=== PATIENT | male | born 1960 | race Hispanic/Latino ===

== ENCOUNTER → 2018-04-29 | Day surgery (SDC) | payer MEDICARE ==
[~2018-04-29] MED LIST: FENTANYL CITRATE/PF 100MCG/2 ML INJ ONE; HYDRALAZINE HCL25 MG PO; HYOSCYAMINE SULFATE 0.5 MG/ML INJ ONE; METOPROLOL TART50 MG PO; MIDAZOLAM HCL 2 MG/2 ML VIAL ONE; PROPOFOL IV EMULSION 10 MG/ML 50 ML VIAL ONE
[2018-04-29 13:27] VITALS: BP 132/85
--- NOTE | 2018-04-29 14:18 | Operative Report ---
DATE OF PROCEDURE: April 29, 2018 REFERRING PHYSICIAN: Dr. Boy Tripp. PROCEDURE PERFORMED: Colonoscopy and polypectomy. INDICATIONS FOR COLONOSCOPY: Colorectal cancer screening. MEDICATION: Patient was done under MAC. Please see anesthesiologist's note. PROCEDURE: With the patient in left lateral decubitus position, a flexible fiberoptic Olympus colonoscope was inserted into the rectum with ease and advanced all the way to the cecum. Mucosa overlying the cecum appeared to be within normal limits. Diverticular disease was noted to involve the right colon. One polyp was snared from the proximal ascending colon and a larger polyp, approximately 1.5 cm in size, was snared from the distal ascending colon. Site was tattooed. The transverse and descending grossly appeared to be within normal limits. One polyp was hot biopsied from the sigmoid. The rectum appeared to be within normal limits. The scope was then retroflexed into the distal rectum and small internal hemorrhoids were noted, none of which was actively bleeding. The scope was then straightened out. It was subsequently withdrawn. Patient tolerated the procedure well. IMPRESSION 1. Diverticulosis, right colon. 2. Large polyp, approximately 1.5 cm in size, ascending colon, removed per snare electrocautery and polypectomy site was tattooed. 3. Ascending colon polyp, distal to the aforementioned, removed per snare electrocautery. 4. Sigmoid colon polyp, hot biopsied. 5. Internal hemorrhoids, none actively bleeding. PLAN: Follow up histology. Initiate high-fiber, low-fat diet. Initiate high-fiber supplement. Timing of followup colonoscopy pending pathology report. Job#: [id number] [facility] cc:BOY SCHULTE MD
== END | disposition home or self-care (01) ==
LOC: OR 10:03
PROVIDERS: ATTEND Internal Medicine Gastroenterology
DX: Z12.11 Encounter for screening for malignant neoplasm of colon (principal); D12.2 Benign neoplasm of ascending colon; D12.5 Benign neoplasm of sigmoid colon; K57.30 Diverticulosis of large intestine without perforation or abscess without bleeding; K64.8 Other hemorrhoids; I10 Essential (primary) hypertension
CPT/HCPCS: 45384; 45385; 88305; 93005; J1980; J2250; 45378

== ENCOUNTER → 2022-01-05 | Day surgery (SDC) | payer MEDICARE ==
[2022-01-01 13:51] LABS: BASOPHILS % 0.4 % (0.0-1.0); EOSINOPHILS # (AUTO) 0.1 (0.0-0.4); EOSINOPHILS % 1.1 % (0.0-6.0); HEMOGLOBIN 12.3 g/dL (14.0-18.0); LYMPHOCYTES # (AUTO) 0.6 (1.0-3.2); MEAN CORPUSCULAR HEMOGLOBIN 30.7 pg (28-32); MEAN CORPUSCULAR HGB CONC 34.2 g/dL (31-35); MEAN CORPUSCULAR VOLUME 89.8 fL (81-99); MONOCYTES # (AUTO) 0.6 (0.2-0.8); MONOCYTES % 11.2 % (4.4-11.3); NEUTROPHILS # (AUTO) 4.1 (2.1-6.9); NEUTROPHILS % 75.9 % (38.7-80.0); PLATELET COUNT 147 x10e3/uL (140-360); RED BLOOD COUNT 4.01 x10e6/uL (4.3-5.7); RED CELL DISTRIBUTION WIDTH 13.1 % (11.7-14.4)
[2022-01-01 14:11] LABS: ANION GAP 15.7 mmol/L (8-16); CALCIUM 8.7 mg/dL (8.4-10.2); CREATININE, SERUM 1.67 mg/dL (0.72-1.25); POTASSIUM 4.7 mmol/L (3.5-5.1)
[2022-01-01 14:38] LABS: INR 1.04; PROTHROMBIN TIME 14.5 seconds (11.9-14.5)
[2022-01-01 14:39] LABS: PARTIAL THROMBOPLASTIN TIME 31.5 seconds (23.8-35.5)
[~2022-01-05] MED LIST changes: +AMLODIPINE BESYL5 MG PO; +ASPIRIN81 MG PO; +BACTRIM DS TAB1 EACH PO; +CARVEDILOL12.5 MG PO; +CEFDINIR300 MG PO; +CRESTOR10 MG PO; +FAMOTIDINE20 MG PO; -FENTANYL CITRATE/PF 100MCG/2 ML INJ ONE; +HUMALOG MI100 UNIT/2 SQ; -HYOSCYAMINE SULFATE 0.5 MG/ML INJ ONE; +LEVOCETIRIZINE D5 MG PO; -MIDAZOLAM HCL 2 MG/2 ML VIAL ONE; +MYCOPHENOLATE250 MG PO; +OR PHACO EYE KIT ONE; +PREDNISONE5 MG PO; +PREOP PHACO EYE KIT ONE; -PROPOFOL IV EMULSION 10 MG/ML 50 ML VIAL ONE; +TACROLIMUS1 MG PO; +VITAMIN D PO
[2022-01-05 15:30] VITALS: BP 147/63
== END | disposition home or self-care (01) ==
LOC: OR 11:27
PROVIDERS: ATTEND Ophthalmology
DX: H25.12 Age-related nuclear cataract, left eye (principal); E11.9 Type 2 diabetes mellitus without complications; I10 Essential (primary) hypertension; N25.81 Secondary hyperparathyroidism of renal origin; H54.7 Unspecified visual loss; E78.1 Pure hyperglyceridemia; Z71.89 Other specified counseling; Z94.0 Kidney transplant status; Z01.810 Encounter for preprocedural cardiovascular examination; Z01.812 Encounter for preprocedural laboratory examination; Z20.822 Contact with and (suspected) exposure to COVID-19; Z79.4 Long term (current) use of insulin; Z79.82 Long term (current) use of aspirin; Z79.899 Other long term (current) drug therapy; Z68.30 Body mass index [BMI] 30.0-30.9, adult; Z87.891 Personal history of nicotine dependence
CPT/HCPCS: 0223U; 36415 ×2; 66984; 80048; 82948; 85025; 85610; 85730; V2632

== ENCOUNTER → 2022-01-19 | Day surgery (SDC) | payer MEDICARE ==
[~2022-01-19] MED LIST changes: +DEXTROSE 5% 250ML 250 ML IV ONE; +DEXTROSE 50% SYRINGE 50 ML IV ONE; +FENTANYL CITRATE/PF 100MCG/2 ML INJ ONE; +MIDAZOLAM HCL 2 MG/2 ML VIAL ONE
[2022-01-19 15:00] VITALS: BP 129/68
== END | disposition home or self-care (01) ==
LOC: OR 10:07
PROVIDERS: ATTEND Ophthalmology
DX: H25.11 Age-related nuclear cataract, right eye (principal); I10 Essential (primary) hypertension; E11.9 Type 2 diabetes mellitus without complications; Z01.812 Encounter for preprocedural laboratory examination; Z20.822 Contact with and (suspected) exposure to COVID-19; Z79.82 Long term (current) use of aspirin; Z79.4 Long term (current) use of insulin; Z79.899 Other long term (current) drug therapy; Z94.0 Kidney transplant status; Z87.891 Personal history of nicotine dependence
CPT/HCPCS: 0223U; 36415 ×2; 66984; 82948; J7070; J7799; J2250; J3010